=== PATIENT | female | born 1980 | race Caucasian/White ===

== ENCOUNTER 2018-09-09 20:30 | Emergency (ER) | payer BC ==
[2018-09-09 20:43] VITALS: BP 143/86; PULSE 95; TEMP 98.3; BMI 47.4
[2018-09-09] MEDS ORDERED: KETOROLAC TROMETHAMINE 30 MG/1 ML VIAL IM ONE (21:09)
[2018-09-09] MEDS ORDERED: KETOROLAC TROMETHAMINE 30 MG/1 ML VIAL ONE (21:10)
--- NOTE | 2018-09-09 21:10 | PDOC ---
History of Present Illness - General Chief Complaint: Pain, Acute Stated Complaint: LEG PAIN Time Seen by Provider: 09/09/18 21:06 - History of Present Illness Initial Comments: 09/09/18 21:09 He 8-year-old female with autoimmune disease presents for evaluation of right knee pain. She states she was jumping on a trampoline and felt a snap in her right knee and has a feeling of instability at this time Past History - Past Medical History Allergies/Adverse Reactions: Allergies Allergy/AdvReac Type Severity Reaction Status Date / Time No Known Allergies Allergy Verified 09/09/18 20:43 Home Medications: Ambulatory Orders Prednisone 10 mg PO ASDIR 09/09/18 COPD: No - Suicide/Smoking/Psychosocial Hx Smoking History: Never smoked Review of Systems - Review of Systems Musculoskeletal: Yes: Joint Pain *Physical Exam - Vital Signs Last Vital Signs Temp Pulse Resp BP Pulse Ox 98.3 F 95 H 18 143/86 100 09/09/18 20:42 09/09/18 20:42 09/09/18 20:42 09/09/18 20:42 09/09/18 20:42 - Physical Exam Comments: 09/09/18 21:31 Right knee skin color and temperature are normal there is no intra-articular effusion. She was just range of motion 0-30 beyond that she does not allow. There is no instability to varus and valgus stress. Unable to get and anterior drawer or Matty's test. She is diffusely tender which seems out of proportion to the examination. For thigh and calf are soft and nontender she has no gross sensorimotor deficits she is neurovascularly intact. Moderate Sedation - Procedure Monitoring Vital Signs: Procedure Monitoring Vital Signs Temperature 98.3 F 09/09/18 20:42 Pulse Rate 95 H 09/09/18 20:42 Respiratory Rate 18 09/09/18 20:42 Blood Pressure 143/86 09/09/18 20:42 O2 Sat by Pulse Oximetry (%) 100 09/09/18 20:42 ED Treatment Course - RADIOLOGY Radiology Studies Ordered: Category Date Time Status KNEE 3 POS-RIGHT [RAD] Stat Radiology 09/09/18 21:08 Ordered *DC/Admit/Observation/Transfer Diagnosis at time of Disposition: Knee injury - Discharge Dispostion Disposition: HOME Condition at time of disposition: Stable Decision to Admit order: No - Referrals Referrals: Jose A Avila DO [Staff Physician] - - Patient Instructions Printed Discharge Instructions: Knee Sprain Additional Instructions: He may weight-bear as tolerated with use of crutches and the knee immobilizer. Return to the emergency room should symptoms worsen or go unresolved and follow- up with orthopedic surgery in 1-2 days for further evaluation and treatment options. Tylenol as directed for pain. Because you're on prednisone he should not take anti-inflammatory such as Advil Motrin or Aleve. - Post Discharge Activity
[2018-09-09] MEDS ORDERED: traMADol HCL 50 MG TABLET PO ONE (21:41)
[2018-09-09] MEDS ORDERED: traMADol HCL 50 MG TABLET ONE (21:46)
== END 2018-09-09 22:00 | disposition home or self-care (01) ==
LOC: JERFT 20:30
DX: S83.8X1A Sprain of other specified parts of right knee, initial encounter (principal); X50.9XXA Other and unspecified overexertion or strenuous movements or postures, initial encounter; Y93.44 Activity, trampolining; Y92.89 Other specified places as the place of occurrence of the external cause; Y99.8 Other external cause status
CPT/HCPCS: 73562-TC-RT-FY; 99282-25